=== PATIENT | male | born 1990 | race Caucasian/White ===

== ENCOUNTER 2016-10-12 19:01 | Emergency (ER) | payer SELFPAY ==
[~2016-10-12] VITALS: Ht 170.2 cm; Wt 67.0 kg
[2016-10-12 19:02] VITALS: BP 130/80; PULSE 136; RESP 18; TEMP 98.4; O2SAT 97
--- NOTE | 2016-10-12 19:04 | PD ---
Physical Exam Date Seen by Provider: Oct 12, 2016 Time Seen by Provider: 19:03 Data Data Last Documented VS Vital Signs Date Time Temp Pulse Resp B/P Pulse Ox O2 Delivery O2 Flow Rate FiO2 10/12/16 19:02 98.4 136 18 130/80 97 Room Air MDM Supervised Visit with MELY: No Narrative Course 26 YO M with "digging" chest pain since 1pm. + SOB. + N/V. --F/C. Endorses history of similar pains which he thinks is 2/2 anxiety and GERD. Patient is living in a sober living facility, detoxing from alcohol. Vitals reviewed. Patient seen in triage. Awaiting bed placement. Kelsea Benton Oct 12, 2016 19:04 Kelsea Benton Oct 12, 2016 19:04
[2016-10-12] MEDS ORDERED: BUSP5TAB PO (19:29)
[2016-10-12] MEDS ORDERED: SERO200T PO (19:29)
[2016-10-12] MEDS ORDERED: BUPR150XL PO (19:29)
[2016-10-12 19:40] VITALS: O2SAT 98
--- NOTE | 2016-10-12 19:40 | PD ---
HPI Chief Complaint: Chest Pain Time Seen by Provider: 19:28 Travel History International Travel<30 days: No Contact w/Intl Traveler<30days: No Traveled to known affect area: No History of Present Illness HPI 26-year-old male presents to the emergency department by private transportation for evaluation of chest pain. Patient states the chest pain is gripping or grinding. Patient states she has had this type of chest pain in the past since the age of [age] years old and people who have been trying to help him evaluate the cause of his pain have not been able to identify a source. Patient has undergone upper endoscopy before and has been diagnosed with gastritis. Patient is currently going through an alcohol detox program and just transferred from [place] to the [facility] to a [facility] yesterday. Patient states he was in an [place] alcohol detox program from last Friday till and part of his medications included Ativan; however as of he was encouraged to enroll in a long-term Sobriety facility and was referred to this location the [facility] in [place]. Patient reports that he has had no Ativan or benzodiazepines since evening. Patient states that he was on Ativan 1 mg daily. Patient states yesterday he had episodes of vomiting and diarrhea with intermittent crampy abdominal discomfort and this has resolved completely. Patient states today while out walking to a job interview he started to feel sick at his stomach, had some vomiting and upon returning back to the [facility], while drinking a smoothie, started to develop cramping chest discomfort. Patient states that his pain at 2 PM was 10 over 10 in intensity. Patient reports his discomfort at this time is now 8/ 10 in intensity. Discomfort is nonradiating. Patient does not report any associated shortness of breath, sweats, nausea, vomiting, referred neck, jaw, back, shoulder, arm, or abdominal pain. Patient states he has not experienced any coffee-ground emesis or hematemesis. Patient states he's had no melena or hematochezia. Patient states that he does have an ongoing history of ADHD, gastritis, and anxiety. Patient states he's had no alcohol since 1 week ago Friday. Patient states that because of the discomfort in his chest he decided to come to the emergency room to be evaluated and this was also recommended by the Sobriety house facility. [facility] Past Medical History Narrative Medical anxiety, adhd, gastritis; EGD; alcohol use tobacco use substance use; nursing notes reviewed ADHD: Yes Anxiety: Yes GERD: Yes Tetanus Vaccination: Unknown Influenza Vaccination: No Past Surgical History Surgical History: No Previous Surgery Social History Alcohol Use: Yes (recovery) Tobacco Use: Yes Substance Use: Yes (marijuana) Allergies-Medications (Allergen,Severity, Reaction): Coded Allergies: No Known Allergies (Unverified , 10/12/16) Reported Meds & Prescriptions Reported Meds & Active Scripts Active Reported Seroquel (Quetiapine Fumarate) 200 Mg Tab 200 Mg PO HS Buspirone (Buspirone HCl) 5 Mg Tab 5 Mg PO TID Wellbutrin Xl 24 HR (Bupropion HCl) 150 Mg Tab 150 Mg PO DAILY Review of Systems Except as stated in HPI: all other systems reviewed are Neg General / Constitutional: Positive: Fever, Chills HENT: No: Congestion Cardiovascular: Positive: Chest Pain or Discomfort, No: Diaphoresis Respiratory: No: Shortness of Breath Gastrointestinal: Positive: Nausea, Vomiting, Diarrhea, Abdominal Pain ( yesterday yesterday yesterday) Genitourinary: No: Dysuria, Flank Pain Musculoskeletal: No: Myalgias, Arthralgias Skin: No Rash Neurologic: No: Weakness, Dizziness, Syncope, Focal Abnormalities, Coordination Problem Psychiatric: Positive: Anxiety Endocrine: No: Heat Intolerance Hematologic/Lymphatic: No: Easy Bruising Physical Exam Narrative GENERAL: Well-developed well-nourished male in no acute distress no respiratory distress; triage heart rate 136 tachycardic SKIN: Warm and dry. HEAD: Normocephalic. EYES: No scleral icterus. No injection or drainage. NECK: Supple, trachea midline. No JVD or lymphadenopathy. CARDIOVASCULAR: Regular rate and rhythm without murmurs, gallops, or rubs. RESPIRATORY: Breath sounds equal bilaterally. No accessory muscle use. GASTROINTESTINAL: Abdomen soft, non-tender, nondistended. MUSCULOSKELETAL: No cyanosis, or edema. BACK: Nontender without obvious deformity. No CVA tenderness. Data Data Last Documented VS Vital Signs Date Time Temp Pulse Resp B/P Pulse Ox O2 Delivery O2 Flow Rate FiO2 10/12/16 20:00 111 18 138/80 99 Room Air 10/12/16 19:02 98.4 Orders Electrocardiogram (10/12/16 19:28) Complete Blood Count With Diff (10/12/16 19:28) Comprehensive Metabolic Panel (10/12/16 19:28) Magnesium (Mg) (10/12/16 19:28) Troponin I (10/12/16 19:28) Lipase (10/12/16 19:28) Chest, Single Ap (10/12/16 19:28) Ecg Monitoring (10/12/16 19:28) Iv Access Insert/Monitor (10/12/16 19:28) Oximetry (10/12/16 19:28) Alcohol (Ethanol) (10/12/16 19:28) Drug Screen, Random Urine (10/12/16 19:40) Sodium Chlor 0.9% 1000 Ml Inj (Ns 1000 M (10/12/16 20:30) Pantoprazole Inj (Protonix Inj) (10/12/16 20:30) Ketorolac Inj (Toradol Inj) (10/12/16 20:30) Drug Screen, Random Urine (10/12/16 22:31) Labs Laboratory Tests Test 10/12/16 10/12/16 10/13/16 19:35 20:10 00:20 White Blood Count 7.4 TH/MM3 Red Blood Count 6.02 MIL/MM3 Hemoglobin 18.8 GM/DL Hematocrit 52.9 % Mean Corpuscular Volume 87.9 FL Mean Corpuscular Hemoglobin 31.2 PG Mean Corpuscular Hemoglobin 35.5 % Concent Red Cell Distribution Width 12.9 % Platelet Count 320 TH/MM3 Mean Platelet Volume 8.1 FL Neutrophils (%) (Auto) 67.5 % Lymphocytes (%) (Auto) 18.6 % Monocytes (%) (Auto) 9.6 % Eosinophils (%) (Auto) 4.1 % Basophils (%) (Auto) 0.2 % Neutrophils # (Auto) 5.0 TH/MM3 Lymphocytes # (Auto) 1.4 TH/MM3 Monocytes # (Auto) 0.7 TH/MM3 Eosinophils # (Auto) 0.3 TH/MM3 Basophils # (Auto) 0.0 TH/MM3 CBC Comment DIFF FINAL Differential Comment Sodium Level 137 MEQ/L Potassium Level 3.7 MEQ/L Chloride Level 103 MEQ/L Carbon Dioxide Level 21.0 MEQ/L Anion Gap 13 MEQ/L Blood Urea Nitrogen 15 MG/DL Creatinine 1.43 MG/DL Estimat Glomerular Filtration 61 ML/MIN Rate Random Glucose 101 MG/DL Calcium Level 10.0 MG/DL Magnesium Level 1.8 MG/DL Total Bilirubin 0.4 MG/DL Aspartate Amino Transf 9 U/L (AST/SGOT) Alanine Aminotransferase 29 U/L (ALT/SGPT) Alkaline Phosphatase 70 U/L Troponin I LESS THAN 0.02 NG/ML Total Protein 8.4 GM/DL Albumin 4.3 GM/DL Lipase 53 U/L Ethyl Alcohol Level LESS THAN 3 MG/DL Urine Opiates Screen NEG NEG Urine Barbiturates Screen NEG NEG Urine Amphetamines Screen POS NEG Urine Benzodiazepines Screen NEG NEG Urine Cocaine Screen NEG NEG Urine Cannabinoids Screen POS POS MDM Medical Decision Making Medical Screen Exam Complete: Yes Emergency Medical Condition: Yes Medical Record Reviewed: Yes Interpretation(s) EKG: Sinus tachycardia rate 102 prominent T waves with LVH criteria and no acute ST elevation or injury pattern change noted Last Impressions Chest X-Ray 10/12/[id number] Signed Impressions: Service Date/Time: Friday, October 12, 2016 19:36 - CONCLUSION: No evidence of acute cardiopulmonary disease. Mikel Fritz MD CBC & BMP Diagram 10/12/16 19:35 Vital Signs Date Time Temp Pulse Resp B/P Pulse Ox O2 Delivery O2 Flow Rate FiO2 10/12/16 20:00 111 18 138/80 99 Room Air 10/12/16 19:40 98 Room Air 10/12/16 19:02 98.4 136 18 130/80 97 Room Air Urine drug screen: positive for amphetamines and cannabinoids; patient insists that he has had no exposure to any amphetamines and insists on having a repeat urine drug screen Urine drug screen #2: Positive for cannabinoids only Differential Diagnosis Chest pain, ACS, SC, substance ingestion, pneumothorax, pneumomediastinum, esophageal spasm, gastritis, peptic ulcer disease, perforated viscus, cholecystitis, pancreatitis, dehydration, electronic disturbance, arrhythmia Narrative Course Patient placed on environmental monitoring technician IV access obtained specimens collected and sent for resulting EKG ordered IV fluids administered specimens collected and sent for resulting Waiting on urinalysis specimen for tox screen Tox screen positive for amphetamines and cannabinoids patient denies any amphetamine ingestion states that he did use a energy booster that he purchased from a market called [employer] but states it only had caffeine in it and denies any amphetamine use and insists on a repeat tox screen waiting for additional urine specimen IV fluids and oral fluids administered for additional tox screen specimen Urine specimen collected tox screen sent and positive for cannabinoids Patient informed of second drug screen results and again is stable for outpatient management with atypical chest pain Diagnosis Primary Impression: Atypical chest pain Referrals: Primary Care Physician as needed Patient Instructions: General Instructions Additional Instructions: Increase fluid hydration Follow-up with your managing provider Return to your sobriety house Return to the emergency department for any concerns or change in condition May take as tolerated as provided ibuprofen 600 mg as often as every 6-8 hours as needed for pain associated with inflammation avoid overuse in view of history of gastritis Disposition: 01 DISCHARGE HOME Condition: Stable Rosaura Gamez MD Oct 12, 2016 19:40
[2016-10-12 19:52] LABS: BASOPHIL % 0.2 % (0.0-2.0); EOSINOPHIL # 0.3 TH/MM3 (0-0.4); EOSINOPHIL % 4.1 % (0.0-4.0); HEMATOCRIT 52.9 % (39.0-51.0); HEMO FLAGS DIFF FINAL; LYMPH % 18.6 % (9.0-44.0); LYMPHOCYTE # 1.4 TH/MM3 (1.0-4.8); MEAN CELL VOLUME 87.9 FL (80.0-100.0); MEAN CORPUSCULAR HEMOGLOBIN 31.2 PG (27.0-34.0); MEAN CORPUSCULAR HGB CONC 35.5 % (32.0-36.0); MONO % 9.6 % (0.0-8.0); NEUT % 67.5 % (16.0-70.0); PLATELET COUNT 320 TH/MM3 (150-450); RED BLOOD COUNT 6.02 MIL/MM3 (4.50-5.90); RED CELL DISTRIBUTION WIDTH 12.9 % (11.6-17.2); WHITE BLOOD COUNT 7.4 TH/MM3 (4.0-11.0)
[2016-10-12 20:00] VITALS: BP 138/80; PULSE 111; RESP 18; O2SAT 99
--- NOTE | 2016-10-12 20:03 | RADRPT ---
EXAM DATE/TIME: 10/12/2016 19:36 [facility] COMPARISON: No previous studies available for comparison. INDICATIONS : Chest pain and shortness of breath. Patient states he is going through detox. MEDICAL HISTORY : None. SURGICAL HISTORY : None. ENCOUNTER: Initial ACUITY: 4 - 6 days PAIN SCORE: 10/10 LOCATION: Bilateral chest FINDINGS: A single view of the chest demonstrates the lungs to be symmetrically aerated without evidence of mas s, infiltrate or effusion. The cardiomediastinal contours are unremarkable. Osseous structures are intact. CONCLUSION: No evidence of acute cardiopulmonary disease. Mikel Fritz MD on October 12, 2016 at 20:00 Board Certified Radiologist. This report was verified electronically.
[2016-10-12 20:15] LABS: ALT (GPT) 29 U/L (12-78); ANION GAP 13 MEQ/L (5-15); AST (GOT) 9 U/L (15-37); BLOOD UREA NITROGEN 15 MG/DL (7-18); CHLORIDE 103 MEQ/L (98-107); GLOMERULAR FILTRATION RATE 61 ML/MIN (>89); MAGNESIUM 1.8 MG/DL (1.5-2.5); POTASSIUM 3.7 MEQ/L (3.5-5.1); SODIUM (NA) 137 MEQ/L (136-145)
[2016-10-12 20:19] LABS: ALKALINE PHOSPHATASE 70 U/L (45-117); TOTAL BILIRUBIN ADULT 0.4 MG/DL (0.2-1.0)
[2016-10-12] MEDS ORDERED: KETOROLAC TROMETHAMINE 30 MG/ML (IVP) VIAL IV PUSH ONE (20:30)
[2016-10-12] MEDS ORDERED: PANTOPRAZOLE SODIUM 40 MG VIAL IV PUSH ONE (20:30)
[2016-10-12] MEDS ORDERED: SODIUM CHLOR 0.9% 1000 ML INJ 1,000 ML IV ONE (20:30)
[2016-10-12 20:57] LABS: AMPHETAMINE, URINE POS (NEG); BARBITURATES, URINE NEG (NEG); COCAINE, URINE NEG (NEG)
[2016-10-13 01:04] LABS: AMPHETAMINE, URINE NEG (NEG); BARBITURATES, URINE NEG (NEG); COCAINE, URINE NEG (NEG)
--- NOTE | 2016-10-13 12:20 | EKG ---
Date Performed: 10/12/2016 Time Performed: 19:42:20 PTAGE: 26 years EKG: SINUS TACHYCARDIA ABNORMAL RHYTHM ECG NO PREVIOUS TRACING DOCTOR: Rod Franklin Interpretating Date/Time 10/13/2016 12:17:41
== END 2016-10-13 02:22 | disposition home or self-care (01) ==
LOC: NEPC 19:01
DX: R07.89 Other chest pain (principal); R00.0 Tachycardia, unspecified
CPT/HCPCS: 71010; 80053; 80307; 83690; 83735; 84484; 85025; 93005; 96374; 96375; 99285; C9113; J1885; J7030